=== PATIENT | female | born 1950 | race Two or more races ===

== ENCOUNTER 2023-06-18 13:42 | Inpatient (IN) | payer MEDICARE, OTHER ==
[~2023-06-18] VITALS: Ht 157.5 cm; Wt 63.5 kg
[2023-06-18] MEDS ORDERED: MAG HYDROX/AL HYDROX/SIMETH 30 ML UDC PO PRN (14:30)
[2023-06-18] MEDS ORDERED: TEMAZEPAM 7.5 MG CAPSULE PO PRN (14:30)
[2023-06-18] MEDS ORDERED: ACETAMINOPHEN 325 MG TABLET PO PRN (14:30)
[2023-06-18] MEDS ORDERED: LORAZEPAM 0.5 MG TABLET PO PRN (14:30)
[2023-06-18] MEDS ORDERED: BLOOD SUGAR DIAGNOSTIC 1 EACH STRIP IN ONE (14:30)
[2023-06-18] MEDS ORDERED: MAGNESIUM HYDROXIDE 30 ML UDC PO PRN (14:30)
[2023-06-18 14:34] VITALS: BP 130/58; TEMP 98; O2SAT 96
[2023-06-18] MEDS ORDERED: PIOG30TA10 PO (15:02)
[2023-06-18] MEDS ORDERED: DIVA125C5 PO (15:02)
[2023-06-18] MEDS ORDERED: INSU100I14 SQ (15:02)
[2023-06-18] MEDS ORDERED: QUET300T2 PO (15:02)
[2023-06-18] MEDS ORDERED: METF-440 PO (15:02)
[2023-06-18] MEDS ORDERED: AMLO-212 PO (15:02)
[2023-06-18] MEDS ORDERED: VALS40TA12 PO (15:02)
[2023-06-18] MEDS ORDERED: DEXTROSE 50%-WATER 50 ML DISP.SYRIN IV PRN (15:30)
[2023-06-18 16:00] VITALS: BP 130/58; TEMP 98; O2SAT 96
--- NOTE | 2023-06-18 16:19 | NUR ---
Pt. arrived in the unit at about 1400 via ambulance and transported via a gurney. Pt. was placed on room 216B. Dr. Salazar made aware of the admission and with orders and Dr. Tai made aware of the admission and with order and reconciled the meds. Addendum: 06/18/23 at 1854 by ENDY BAE RN V/S taken, contraband taken, pt. signed the admitting papers and skin assessment done. Pt. oriented in the unit and presented with unit policies.
[2023-06-18] MEDS: METFORMIN 500 MG TABLET PO SCH (16:35)
[2023-06-18] MEDS: BLOOD SUGAR DIAGNOSTIC 1 EACH STRIP IN SCH ×2 (17:40→21:32)
[2023-06-18] MEDS: INSULIN REGULAR, HUMAN 100 UNIT/ML 3 ML VIAL SQ PRN ×2 (17:41→21:33)
[2023-06-18 20:00] VITALS: BP 132/90; TEMP 98.3; O2SAT 98
[2023-06-19] MEDS: BLOOD SUGAR DIAGNOSTIC 1 EACH STRIP IN SCH ×4 (07:43→21:28)
[2023-06-19 08:00] VITALS: BP 126/49; TEMP 97.5; O2SAT 99
[2023-06-19 08:29] LABS: ALBUMIN 3.1 g/dL (3.4-5.0); BILIRUBIN,TOTAL 0.2 mg/dL (0.2-1.0); CALCIUM, SERUM 9.4 mg/dL (8.5-10.1); CREATININE 0.6 mg/dL (0.6-1.3); POTASSIUM 4.3 mmol/L (3.5-5.1); TOTAL PROTEIN, SERUM 6.6 g/dL (6.4-8.2)
[2023-06-19] MEDS: METFORMIN 500 MG TABLET PO SCH ×2 (09:24→16:24)
[2023-06-19] MEDS: LOSARTAN POTASSIUM 25 MG TABLET PO SCH (09:25)
[2023-06-19] MEDS: AMLODIPINE BESYLATE 5 MG TABLET PO SCH (09:25)
[2023-06-19] MEDS: PIOGLITAZONE HCL 15 MG TABLET PO SCH (09:26)
[2023-06-19] MEDS: INSULIN REGULAR, HUMAN 100 UNIT/ML 3 ML VIAL SQ PRN ×3 (09:28→21:30)
--- NOTE | 2023-06-19 10:40 | NUR ---
RN- NOTES TYLENOL ADMINISTERED DUE TO PATIENT COMPLAINTS OF A HEADACHE.
--- NOTE | 2023-06-19 13:00 | NUR ---
RN- NOTES PSYCHIATRIST DR. ARCOS APPROVED DISCHARGE OF PATIENT VIA FAMILY CANAL BOAT OPERATOR. SPOKE TO GRANDDAUGHTER BEREKET FORTE ([phone]). BEREKET AGREED TO COME AND CANAL BOAT OPERATOR PATIENT FROM THE HOSPITAL.
--- NOTE | 2023-06-19 13:05 | NUR ---
RN- NOTES SPOKE TO SON ANDI FORTE ([phone]), ANDI PROVIDED INFORMATION OF CONSERVATORSHIP FOR PATIENT AND INFORMED NURSE THAT BOTH HIMSELF AND GRANDDAUGHTER ARE UNABLE TO SAFELY YOUTH SPECIALIST PATIENT FROM THE HOSPITAL AND REQUESTED HOSPITAL TO DISCHARGE PATIENT VIA TAXI CAB.
--- NOTE | 2023-06-19 13:10 | NUR ---
RN- NOTES SPOKE TO ADAPTED PHYSICAL EDUCATION TEACHER JULIANNE, AND INFORMED OF SITUATION. JULIANNE INFORMED NURSE THAT PATIENT MUST BE PICKED UP VIA A RESPONSIBLE AND SAFE [employer] IN PERSON FOR A SAFE DISCHARGE.
--- NOTE | 2023-06-19 13:15 | NUR ---
RN- NOTES ATTEMPTED TO INFORM SON ANDI FORTE ([phone]) OF INFORMATION REGARDING PATIENT DISCHARGE. PHONE CALL NOT ANSWERED AND UNABLE TO LEAVE MESSAGE. DR. ARCOS MADE AWARE. DISCHARGE CURRENTLY HELD DUE TO UNSAFE DISCHARGE PLAN.
[2023-06-19] MEDS: DIVALPROEX SODIUM 125 MG CAP.SPRINK PO SCH ×2 (13:40→16:24)
[2023-06-19 14:46] LABS: CREATININE 0.9 mg/dL (0.6-1.3)
[2023-06-19 16:00] VITALS: BP 151/69; TEMP 97.9; O2SAT 99
[2023-06-19] MEDS ORDERED: ONDANSETRON 4 MG TAB.RAPDIS PO PRN (17:00)
[2023-06-19] MEDS ORDERED: ONDANSETRON HCL 4 MG/5 ML SOLUTION PO PRN (17:00)
--- NOTE | 2023-06-19 17:17 | NUR ---
RN- NOTES ZOFRAN ADMINISTERED DUE TO PATIENT COMPLAINTS OF NAUSEA, NO VOMITING NOTED.
--- NOTE | 2023-06-19 18:35 | NUR ---
RN- CLOSING NOTES PATIENT AWAKE, RESTING IN BED, BREATHING EVEN AND NON LABORED WITH NO S/S OF DISTRESS. PATIENT IS COOPERATIVE, GUARDED, ANXIOUS, DEPRESSED, LABILE, SUSPICIOUS, AND ISOLATIVE. PATIENT IS MEDICATION COMPLIANT. ENCOURAGED PATIENT TO LEAVE ROOM AND SOCIALIZE WITH STAFF, PATIENT REFUSED. PATIENT COMPLAINTS OF NAUSEA, PRN MEDICATIONS ADMINISTERED. DENIES SI/HI AT THIS TIME. WILL CONTINUE TO MONITOR Q 15 MINUTES FOR SAFETY AND BEHAVIOR.
--- NOTE | 2023-06-19 19:30 | NUR ---
GPS RN OPENING NOTE RECEIVED PT AWAKE IN BED. PT STABLE ON ROOM AIR. NO SOB OR S/S OF RESPIRATORY DISTRESS. BREATHING EVEN AND UNLABORED. PT IS COOPERATIVE, GUARDED, DEPRESSED,MED COMPLIANT, AND ISOLATIVE. DENIES SI/HI AT THIS TIME. WILL CONTINUE TO MONITOR Q15MIN FOR SAFETY AND BEHAVIOR.
[2023-06-19 21:14] VITALS: BP 148/54; TEMP 97.5; O2SAT 98
[2023-06-19] MEDS ORDERED: QUETIAPINE FUMARATE 100 MG TABLET PO SCH ×2 (22:00)
[2023-06-20 08:00] VITALS: BP 118/60; TEMP 98.6; O2SAT 98
[2023-06-20] MEDS: BLOOD SUGAR DIAGNOSTIC 1 EACH STRIP IN SCH (08:23)
[2023-06-20] MEDS: PIOGLITAZONE HCL 15 MG TABLET PO SCH (08:23)
[2023-06-20] MEDS: METFORMIN 500 MG TABLET PO SCH (08:23)
[2023-06-20 08:24] VITALS: BP 118/60
[2023-06-20] MEDS: AMLODIPINE BESYLATE 5 MG TABLET PO SCH (08:24)
[2023-06-20] MEDS: DIVALPROEX SODIUM 125 MG CAP.SPRINK PO SCH (08:24)
[2023-06-20] MEDS: LOSARTAN POTASSIUM 25 MG TABLET PO SCH (08:24)
[2023-06-20] MEDS: INSULIN REGULAR, HUMAN 100 UNIT/ML 3 ML VIAL SQ PRN (08:28)
--- NOTE | 2023-06-20 08:56 | NUR ---
REESE Initial Discharge Note: Patient currently resides at home located at [address] [place] [address]; ([phone]). Pt lives with son Rakesh ([phone]). REESE contacted person to notify Eyrn ([phone]) to discuss treatment/discharge plan. Pt's granddaughter stated that they will be picking pt up today but would need to confirm with aunt. REESE also called pt's son Rakesh ([phone]) and left a detailed voicemail. REESE will work with the MD, family, and treatment team to help coordinate appropriate discharge.
--- NOTE | 2023-06-20 08:57 | NUR ---
REESE Family Contact: Pt lives with son Rakesh ([phone]). REESE contacted person to notify Eryn ([phone]) to discuss treatment/discharge plan. Pt's granddaughter stated that they will be picking pt up today but would need to confirm with aunt. REESE also contacted pt's son Rakesh ([phone]) and left a voicemail.
--- NOTE | 2023-06-20 08:57 | NUR ---
REESE Clinical Note: Pt placed on a 5150 hold for GD. Patient currently resides at home located at [address] [place] [address]; ([phone]). Pt lives with son Rakesh ([phone]). REESE contacted person to notify Eryn ([phone]) to discuss treatment/discharge plan. Pt's granddaughter stated that they will be picking pt up today but would need to confirm with aunt. REESE also called pt's son Rakesh ([phone]) and left a detailed voicemail.
--- NOTE | 2023-06-20 10:38 | NUR ---
REESE Family Contact: REESE received a voicemail from son Rakesh ([phone]) who claims to be the DPOA but has not shown documents that he authorizes Eryn ([phone]) will picker packer pt today at 10:30AM.
--- NOTE | 2023-06-20 10:53 | NUR ---
SW Initial Discharge Note: Patient will [place] back [place] [address] [place] [address]: ([phone]). Patients granddaughter Eryn ([phone]) who will pickler helper at 10:30AM. Patients granddaughter Eryn ([phone]) and son Rakesh ([phone]) are aware and agreeable of discharge. Patient is alert and oriented x1. Patient happy to be going back home. Patient denies suicidal or homicidal ideation. Patient denies visual/auditory hallucinations. Pt given resources for [facility] [employer], Dr. Cristobal; ([phone]), Dr. Soto ([phone]), Dr. Rodriges ([phone]). Pt given resources Psychiatry, Dr. Roberts ([phone]), Dr. Rashid ([phone]), Dr. Victor ([phone]). Patient presents with euthymic mood and congruent affect.
--- NOTE | 2023-06-20 11:40 | NUR ---
NURSE NOTE: 73 YEAR OLD FEMALE DISCHARGED TO HOME IN STABLE COND. COMPLIANT WITH MEDS, COOPERATIVE WITH TREATMENT PLANS. PT DENIES SI/HI AND INSTRUCTED TO GO TO THE CLOSEST ER OR CALL 911 IF DEVELOPING SI/HI. BEHAVIOR IMPROVED, PSYCHIATRIC TX PLANS MET, MEDICAL PLANS DEFERRED FOR CONTINUAL MONITORING. DR ARCOS DISCONTINUED HOLD AND BOTH DR ARCOS AND DR MARQUES DISCHARGED PT. EDUCATION ABOUT AFTER CARE PLAN AND COPY PROVIDED. RETURNED PERSONAL BELONGINGS TO PT. MEDS RECONCILED WITH DR ARCOS AND DR MARQUES. ARM BAND REMOVED PRIOR TO DISCHARGE. GRAND DAUGHTER BEREKET FORTE SIGNED RESPONSIBLE [employer]M. PT SIGNED DISCHARGE PAPERWORK. PT LEFT THE UNIT AT 1140 VIA WHEELCHAIR. Addendum: 06/20/23 at 1338 by ROBE MAGAÑA RN PT TO F/U WITH [facility] SOON POSSIBLE. RESOURCE LIST GIVEN TO PT.
[2023-06-20] MEDS ORDERED: INSU100V3 SQ (11:43)
[2023-06-20] MEDS ORDERED: GLUC1KIT IM (11:44)
== END 2023-06-20 11:40 | disposition home or self-care (01) | DRG 885 ==
LOC: GPS 13:42
PROVIDERS: ADMIT Psychiatry & Neurology Psychosomatic Medicine; ATTEND Internal Medicine
DX: F20.9 Schizophrenia, unspecified (principal); F03.94 Unspecified dementia, unspecified severity, with anxiety; F03.93 Unspecified dementia, unspecified severity, with mood disturbance; E11.9 Type 2 diabetes mellitus without complications; M62.81 Muscle weakness (generalized); I10 Essential (primary) hypertension; Z91.83 Wandering in diseases classified elsewhere; Z91.81 History of falling; Z79.4 Long term (current) use of insulin; Z79.899 Other long term (current) drug therapy
CPT/HCPCS: 36415; 80053-TC; 80061-TC; 82565-TC; 82962-TC; J1815; Q0162